=== PATIENT | male | born 1965 | race Two or more races ===

== ENCOUNTER → 2025-02-01 | Outpatient (CLI) | payer MEDICAID ==
[~2025-02-01] VITALS: Ht 172.7 cm; Wt 90.7 kg
[2025-02-01] MEDS: REGADENOSON 0.4 MG/5 ML SYRG IV ONE ×2 (12:32→12:33)
--- NOTE | 2025-02-01 14:30 | DVHSR ---
APPROVED REPORT Exam: Nuclear Stress Test BMI: 0 Stress Test Details HR Max Heart Rate (APMHR): 162.643310 bpm Target HR (85% APMHR): 137.098472 bpm BP ECG Stress ECG Conclusion lvef 56% no severe stress induced ischemia noted NM EXAM: Myocardial Perfusion REST/STRESS Imaging Protocol: Rest Tc-99m/Stress Tc-99m 1 day Resting Data Rest SPECT myocardial perfusion imaging was performed in supine position 60 minutes following the int ravenous injection of 13 mCi of Tc-99m Sestamibi. Time of rest injection: 1106 Date: 02/01/2025 Time of rest imagin Date: 02/01/2025 Administration Route: IV Administration Site: Left Hand Pharmacologic Stress Pharmacologic stress test was performed by injecting Regadenoson 0.4 mg IV push followed by the intra venous injection of 35 mCi of Tc-99m Sestamibi. Time of stress injection: 1232 Date: 02/01/2025 Time of stress imagin Date: 02/01/2025 Administration Route: IV Administration Site: Left Hand Gated Stress SPECT was performed 60 minutes after stress injection. The images were gated to evaluate regional wall motion and calculate left ventricular ejection fracti on. Stress only was performed in the Supine position. Nuclear Conclusion Nuclear Findings: negative for ischemia lvef 56% no severe stress induced ischemia noted
== END | disposition home or self-care (01) ==
LOC: XYW 10:16
PROVIDERS: ATTEND Specialist
DX: R07.9 Chest pain, unspecified (principal); I25.2 Old myocardial infarction; E66.9 Obesity, unspecified; E11.9 Type 2 diabetes mellitus without complications
CPT/HCPCS: 78452; 93017; A9500; J2785